=== PATIENT | female | born 2000 | race Caucasian/White ===

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

== ENCOUNTER 2019-11-14 02:11 | Emergency (ER) | payer BC ==
[2019-11-14 03:04] VITALS: BP 117/69; PULSE 101
[2019-11-14] MEDS ORDERED: Sodium Chloride 0.9% 1,000 ML IV ONE (03:11)
[2019-11-14] MEDS ORDERED: Ondansetron 4 MG/2 ML SDV IV ONE (03:11)
--- NOTE | 2019-11-14 03:20 | EDM.PDOC ---
ED HPI GENERAL MEDICAL PROBLEM - General Chief Complaint: Abdominal Pain Stated Complaint: VOMITING GREEN BILE PASSING OUT Time Seen by Provider: 11/14/19 03:00 Source of Information: Reports: Patient, RN History Limitations: Reports: No Limitations - History of Present Illness INITIAL COMMENTS - FREE TEXT/NARRATIVE: 19-year-old female brought in by her mother for complaints of diarrhea and vomiting 6 hours ago. Patient reports they were at her grandmother's place for [place] dinner and she started having diarrhea afterwards. She reports the the vomitus was food particles at first and later bile. She denies any fever or chills, hematemesis or bloody stools at this time. She admits to mild abdominal cramping during periods of having diarrhea but relief afterwards. She denies any bloody stools and vomitus. She did admit one of the family members at dinner had a virus. Abdomen Pain Score (Numeric/FACES): 2 - Related Data Allergies Allergy/AdvReac Type Severity Reaction Status Date / Time No Known Allergies Allergy Verified 11/14/19 03:11 Home Meds: Home Meds . 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 Musculoskeletal History: Reports: None Neurological History: Reports: None Psychiatric History: Reports: None Endocrine/Metabolic History: Reports: None Immunologic History: Reports: None Oncologic (Cancer) History: Reports: None Dermatologic History: Reports: None Social & Family History - Family History Family Medical History: Noncontributory - Tobacco Use Smoking Status *Q: Never Smoker Second Hand Smoke Exposure: No - Caffeine Use Caffeine Use: Reports: Soda - Recreational Drug Use Recreational Drug Use: No ED ROS GENERAL - Review of Systems Review Of Systems: Comprehensive ROS is negative, except as noted in HPI. ED EXAM, GI/ABD - Physical Exam Exam: See Below Exam Limited By: No Limitations General Appearance: Alert, Mild Distress Eyes: Bilateral: Normal Appearance, EOMI Ears: Normal External Exam, Normal Canal, Hearing Grossly Normal, Normal TMs Nose: Normal Inspection, Normal Mucosa, No Blood Throat/Mouth: Normal Inspection, Normal Lips, Normal Teeth, Normal Gums, Normal Oropharynx, Normal Voice, No Airway Compromise Head: Atraumatic, Normocephalic Neck: Normal Inspection, Supple, Non-Tender, Full Range of Motion Respiratory/Chest: No Respiratory Distress, Lungs Clear, Normal Breath Sounds, No Accessory Muscle Use, Chest Non-Tender Cardiovascular: Normal Peripheral Pulses, Regular Rate, Rhythm, No Edema, No Gallop, No JVD, No Murmur, No Rub GI/Abdominal Exam: Normal Bowel Sounds, Soft, Non-Tender, No Organomegaly, No Distention, No Abnormal Bruit, No Mass, Pelvis Stable Back Exam: Normal Inspection, Full Range of Motion, NT Extremities: Normal Inspection, Normal Range of Motion, Non-Tender, Normal Capillary Refill, No Pedal Edema Neurological: Alert, Oriented, CN II-XII Intact, Normal Cognition, Normal Gait, Normal Reflexes, No Motor/Sensory Deficits Psychiatric: Normal Affect, Normal Mood Skin Exam: Warm, Dry, Intact, Normal Color, No Rash Lymphatic: No Adenopathy Course - Vital Signs Last Recorded V/S: Last Vital Signs Temp 98.2 F 11/14/19 02:56 Pulse 101 H 11/14/19 02:56 Resp 18 11/14/19 02:56 BP 117/69 11/14/19 02:56 Pulse Ox 100 11/14/19 02:56 - Orders/Labs/Meds Labs: Laboratory Tests 11/14/19 11/14/19 11/14/19 Range/Units 02:50 02:50 04:32 WBC 20.9 H (5.0-10.0) 10^3/uL RBC 5.32 (4.2-5.4) 10^6/uL Hgb 16.4 H D (12.0-16.0) g/dL Hct 45.9 (37.0-47.0) % MCV 86.3 (80-100) fL MCH 30.8 (27.0-34.0) pg MCHC 35.7 H (33.0-35.0) g/dL Plt Count 312 (150-450) 10^3/uL Neut % (Auto) 90.2 H (42.2-75.2) % Lymph % (Auto) 2.7 L (20.5-50.1) % [place] % (Auto) 7.0 (2-8) % Eos % (Auto) 0.0 L (1.0-3.0) % Baso % (Auto) 0.1 (0.0-1.0) % Sodium 140 (135-145) mmol/L Potassium 3.5 L (3.6-5.0) mmol/L Chloride 107 (101-111) mmol/L Carbon Dioxide 20.0 L (21.0-31.0) mmol/L Anion Gap 16.5 BUN 13 (7-18) mg/dL Creatinine 0.7 (0.6-1.3) mg/dL Est Cr Clr Drug Dosing 115.36 mL/min Estimated GFR (MDRD) > 60 BUN/Creatinine Ratio 18.57 Glucose 163 H (74-105) mg/dL Lactic Acid 1.5 (0.5-2.2) mmol/L Calcium 8.6 (8.4-10.2) mg/dl Total Bilirubin 2.2 H (0.2-1.0) mg/dL AST 21 (10-42) IU/L ALT 25 (10-60) IU/L Alkaline Phosphatase 38 L (42-121) IU/L Total Protein 7.6 (6.7-8.2) g/dl Albumin 4.5 (3.2-5.5) g/dl Globulin 3.1 Albumin/Globulin Ratio 1.45 Meds: Medications Discontinued Medications Generic Name Dose Route Start Last Admin Trade Name Freq PRN Reason Stop Dose Admin Sodium Chloride 1,000 mls @ 1,000 mls/hr 11/14/19 03:11 11/14/19 03:21 Normal Saline IV 11/14/19 04:10 1,000 mls/hr BOLUS ONE Administration Ondansetron HCl 4 mg 11/14/19 03:11 11/14/19 03:20 Zofran IV 11/14/19 03:12 4 mg ONETIME ONE Administration - Re-Assessments/Exams Free Text/Narrative Re-Assessment/Exam: NS @ 1000ml with zofran IV administered. Patient verbalized relief. Reviewed lab results with patient and mother. Instructions on diet included in the AVS. Symptoms to return to the ER reviewed with patient and mother and they verbalized understanding Departure - Departure Time of Disposition: 04:56 Disposition: Home, Self-Care 01 Condition: Fair Clinical Impression: Gastroenteritis - Discharge Information *PRESCRIPTION DRUG MONITORING PROGRAM REVIEWED*: No *COPY OF PRESCRIPTION DRUG MONITORING REPORT IN PATIENT EMMA: No Instructions: Viral Gastroenteritis, Adult, [id number], Food Choices to Help Relieve Diarrhea, Adult Forms: ED Department Discharge Additional Instructions: Instructions included in the AVS. Follow up with you PCP in five days. Sepsis Event Note - Evaluation Sepsis Screening Result: No Definite Risk - Focused Exam Date Exam was Performed: 11/17/19 Time Exam was Performed: 15:21
[2019-11-14 03:30] LABS: ANION GAP 16.5; CHLORIDE,CL 107 mmol/L (101-111); SODIUM,NA 140 mmol/L (135-145)
== END 2019-11-14 05:06 | disposition home or self-care (01) ==
LOC: DL.ED 02:11
DX: K52.9 Noninfective gastroenteritis and colitis, unspecified (principal)
CPT/HCPCS: 36415; 80053; 83605; 85025; 96361; 96374; 99284; J2405; J7030